=== PATIENT | female | born 1980 | race Caucasian/White ===

== ENCOUNTER → 2016-12-28 | Outpatient (CLI) | payer OTHER ==
[~2016-12-28] MED LIST: PERCOCET PO; PHENERGAN25 MG PO; VICODIN 5/1 TAB 5/50 PO
--- NOTE | ~2016-12-28 | MR17 ---
[facility] A Service of [facility] RADIOLOGY TEXT RESULTS PATIENT: REBA BRIZUELA LOCATION: CEEG : 76 UNIT #: [id number] AGE: [address]: TAYLOR MACDONALD SEX: F ORDER DR: [id number] [facility] [address] [place], [place] [address] [id number] O MR#: [id number] Acc #: [id number] NAME: REBA BRIZUELA : 1980 SEX: F STUDY DATE/TIME: 12/28/2016 10:42 UNIT: CEEG ROOM: STUDY DESCRIPTION: MR Brain WWo Contrast Attending Physician: Taylor Macdnoald M.D. Referring Physician: Taylor Macdonald M.D. Ordering Physician: Taylor Macdonald M.D. Primary Care Physician: Slick Vargas M.D. MRI CENTER REPORT This report is preliminary unless electronic signature is present. EXAM Brain MRI with and without contrast 12/28/2016 TECHNIQUE Routine brain MRI with and without contrast, including seizure protocol imaging. COMPARISON STUDIES None. HISTORY Partial complex seizures for 10 years. FINDINGS There is no evidence of intracranial hemorrhage or acute restricted diffusion. 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 The brain is otherwise structurally normal. There is no hydrocephalus or extraaxial fluid collection. Postcontrast images show no abnormal enhancement. Normal flow voids are seen in the cerebral vessels. There is some ethmoid, maxillary and sphenoid mucosal thickening without air-fluid levels. IMPRESSION Study is markedly abnormal. 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 There is no mass or abnormal enhancement. The exam is otherwise unremarkable. No acute abnormality is seen. [facility] A Service of [facility] RADIOLOGY TEXT RESULTS PATIENT: REBA BRIZUELA LOCATION: CEEG : 76 UNIT #: [id number] AGE: [address]: TAYLOR MACDONALD SEX: F ORDER DR: Dictated by... Kartik Francis M.D. THIS IS AN ELECTRONICALLY VERIFIED REPORT Kartik Francis M.D. at 01/01/2017 12:15 PM TEV/pcl TD: 12/28/2016 17:23 JOB #: [id number] MRI CENTER REPORT Page 1 of 1 COPY
--- NOTE | ~2016-12-28 | EE ---
Unit #: [id number] #: [id number] Patient: REBA BRIZUELA [id number] [address] [address] [id number] O MR#: [id number] NAME: REBA BRIZUELA : 1980 SEX: F STUDY DATE/TIME: 12/28/2016 UNIT: CEEG ROOM: STUDY DESCRIPTION: Attending Physician: Taylor Zuluaga M.D. Referring Physician: Taylor Zuluaga M.D. Primary Care Physician: Slick Vargas M.D. NEURODIAGNOSTICS REPORT EXAM EEG. REASON FOR STUDY Seizures. TECH Nena. TECHNICAL INFORMATION This is a routine EEG performed using the [employer] 10/20 System with electrode placement. Hyperventilation was performed. Photic stimulation was also performed. REPORT Throughout the entire study, the best background rhythm seen is approximately 10 Hz. This rhythm is seen in both posterior head regions symmetrically and does attenuate to eye opening and closure. Photic stimulation was performed which did not elicit any epileptiform abnormalities; however, a good photic driving response was seen. Hyperventilation was also performed which failed to reproduce any abnormal buildup. Throughout the entire study, there were no electrographic seizures recorded nor were there any independent epileptiform abnormalities seen. INTERPRETATION This is a normal awake EEG. A normal EEG does not rule out the possibility of a seizure disorder. Clinical correlation is advised. Dictated by... Saeed Aguilera II., M.D. GWS/mylene TD: 01/01/2017 13:40 JOB #: [id number] Unit #: [id number] #: [id number] Patient: REBA BRIZUELA NEURODIAGNOSTICS REPORT Page 1 of 1 X NEURODIAGNOSTICS REPORT
[2016-12-28 10:10] LABS: BASOPHIL% 0.5 % (0-2.5); EOSINOPHIL# 0.3 X10e3 (0-0.7); EOSINOPHIL% 3.2 % (0.0-7.0); HEMOGLOBIN 11.6 gm/dL (12.0-16.0); LYMPHOCYTE# 2.6 X10e3 (1.0-3.5); MEAN CELL VOLUME 79.9 FL (83-96); MEAN CORPUSCULAR HEMOGLOBIN 25.9 PG (28-34); MEAN CORPUSCULAR HGB CONC 32.4 g/dL (30-36); MEAN PLATELET VOLUME 8.1 FL (6.5-11.5); MONOCYTE# 0.6 X10e3 (0-1.0); MONOCYTE% 6.8 % (3.0-12.0); NEUTROPHIL# 4.9 X10e3 (1.5-7.1); NEUTROPHIL% 58.5 % (40-75); PLATELET COUNT 263 X10e3 (140-420); RED CELL DISTRIBUTION WIDTH 14.6 % (11.0-15.5); WHITE BLOOD COUNT 8.3 X10e3 (4.0-10.5)
[2016-12-28 10:15] LABS: DIFF IND NO
[2016-12-28 10:50] LABS: POC - GFR >60.0 mL/min (>60)
[2016-12-28 11:03] LABS: THYROID STIMULATING HORMONE 0.95 uIU/ml (0.34-5.60)
[2016-12-28 11:10] LABS: FREE THYROXIN (T4) 1.08 ng/dL (0.58-1.64)
[2016-12-28 11:17] LABS: FOLATE (FOLIC ACID) >23.6 ng/mL (>5.8)
[2017-01-02 04:40] LABS: SPE A1GLOB (PNL) 0.4 g/dL (0.2-0.3); SPE A2GLOB (PNL) 0.9 g/dL (0.5-0.9); SPE ALB (PNL) 3.7 g/dL (3.8-4.8); SPE BETA 1 GLOBULIN 0.7 g/dL (0.4-0.6); SPE BETA 2 GLOBULIN 0.4 g/dL (0.2-0.5); SPE GAMMA (PNL) 0.9 g/dL (0.8-1.7); SPETP (PNL) 6.9 g/dL (6.1-8.1)
== END | disposition home or self-care (01) ==
LOC: CEEG 08:00
PROVIDERS: Internal Medicine Sleep Medicine
DX: R56.9 Unspecified convulsions (principal); G62.9 Polyneuropathy, unspecified; R68.89 Other general symptoms and signs; Q04.8 Other specified congenital malformations of brain; R93.0 Abnormal findings on diagnostic imaging of skull and head, not elsewhere classified
CPT/HCPCS: 36415; 70553; 82565; 82607; 82746; 84165; 84439; 84443; 85025; 95816; A9577

== ENCOUNTER → 2017-02-25 | Outpatient (CLI) | payer OTHER ==
--- NOTE | ~2017-02-25 | MY29 ---
[facility] A Service of [facility] RADIOLOGY TEXT RESULTS PATIENT: REBA BRIZUELA LOCATION: [facility] : [birth year] UNIT #: [id number] AGE: [address]: Slick Vargas MD SEX: F ORDER DR: [id number] [facility] [address] [place], [place] [address] [id number] O MR#: [id number] Acc #: [id number] NAME: REBA BRIZUELA : 1980 SEX: F STUDY DATE/TIME: 02/25/2017 12:45 UNIT: [facility] ROOM: STUDY DESCRIPTION: MY KIMBERLYN SCREENING W/ CAD BILAT Attending Physician: Slick Vargas M.D. Referring Physician: Slick Vargas M.D. Ordering Physician: Slick Vargas M.D. Primary Care Physician: Slick Vargas M.D. MEDICAL IMAGING REPORT This report is preliminary unless electronic signature is present EXAM Digital screening mammogram 02/25/2017 HISTORY 36-year-old woman, positive family history, mother and aunt. Annual screening. COMPARISON STUDIES 12/15/2015. FINDINGS Digital imaging of each breast was completed utilizing a two-view examination of each breast in craniocaudal and mediolateral-oblique projections. Review and interpretation of digital mammograms include a second review in conjunction with FDA-approved CAD device. There is a normal parenchymal presentation bilaterally consistent with the patient's age. There are no breast masses imaged and no parenchymal asymmetry is visualized. There are no suspicious microcalcifications and I see no focal architectural disturbance. Breast parenchyma is predominantly fatty replaced. IMPRESSION Negative screening digital mammogram. One-year followup recommended. Patients over the age of 40 are entered into a reminder system with target due date for the next mammogram. A result letter will also be sent to the patient. BIRADS: 1 Negative [facility] A Service of [facility] RADIOLOGY TEXT RESULTS PATIENT: REBA BRIZUELA LOCATION: [facility] : 76 UNIT #: [id number] AGE: [address]: Slick Vargas MD SEX: F ORDER DR: Dictated by... Juan Manuel Panda M.D. THIS IS AN ELECTRONICALLY VERIFIED REPORT Juan Manuel Panda M.D. at 02/26/2017 8:11 AM JBB/pcl TD: 02/25/2017 21:25 JOB #: [id number] MEDICAL IMAGING REPORT Page 1 of 1 COPY
== END | disposition home or self-care (01) ==
LOC: CWCC 02-22 13:15
DX: Z12.31 Encounter for screening mammogram for malignant neoplasm of breast (principal); Z80.3 Family history of malignant neoplasm of breast
CPT/HCPCS: G0202